=== PATIENT | female | born 1995 | race Caucasian/White ===

== ENCOUNTER 2019-07-06 14:35 | Emergency (ER) | payer SELFPAY ==
[~2019-07-06] VITALS: Ht 157.5 cm; Wt 55.0 kg
[2019-07-06] MEDS ORDERED: ACETAMINOPHEN 325MG TABLET PO PRN (18:00)
[2019-07-06] MEDS ORDERED: ONDANSETRON 4MG ODT PO ONE (18:00)
[2019-07-06 19:25] LABS: BASOPHILS % 0.8 % (0.0-2.0); EOSINOPHILS % 0.6 % (0.0-5.0); HEMATOCRIT. 41.7 % (36.0-48.0); HEMOGLOBIN. 14.1 g/dL (12.0-16.0); LYMPHOCYTES % 16.1 % (20.0-50.0); MEAN CORPUSCULAR HEMOGLOBIN 31.2 pg (28.0-32.0); MEAN CORPUSCULAR VOLUME 92.1 fL (81.0-99.0); MEAN PLATELET VOLUME 8.4 fl (7.4-10.4); MONOCYTES % 5.2 % (2.0-8.0); NEUTROPHILS % 77.3 % (40.0-76.0); PLATELET 297 x1000/uL (130-400); RED BLOOD CELL COUNT 4.52 mill/uL (4.2-5.4); RED CELL DISTRIBUTION WIDTH 13.2 % (11.6-14.6)
[2019-07-06 19:29] LABS: CHLORIDE 108 mEq/L (98-107)
[2019-07-06 19:30] LABS: INR 1.1; PROTHROMBIN TIME 10.9 sec (9.6-11.0)
[2019-07-06 19:32] LABS: HCG SCREEN POSITIVE
[2019-07-06 19:39] LABS: B-HCG QUANTITATIVE 3 mIU/mL (<3)
[2019-07-06 21:50] VITALS: BP 121/85
== END 2019-07-06 21:54 | disposition home or self-care (01) ==
LOC: ER 14:35
DX: O03.9 Complete or unspecified spontaneous abortion without complication (principal)
CPT/HCPCS: 36415; 76801; 76817; 80053; 81025; 84702; 84703; 85025; 85610; 99284; Q0162